=== PATIENT | female | born 1935 | race Caucasian/White ===

== ENCOUNTER → 2020-12-12 | Outpatient (CLI) | payer MEDICARE, BC | LOC: RAD 15:49 | DX: R22.1 Localized swelling, mass and lump, neck (principal) ==

== ENCOUNTER → 2020-12-19 | Outpatient (CLI) | payer MEDICARE, BC | LOC: RAD 08:30 | DX: M50.30 Other cervical disc degeneration, unspecified cervical region (principal) | CPT/HCPCS: Q9967 ==